=== PATIENT | male | born 1975 | race African-American/Black ===

== ENCOUNTER 2019-08-09 20:42 | Emergency (ER) | payer OTHER ==
[~2019-08-09] VITALS: Ht 175.3 cm; Wt 83.9 kg
[2019-08-09 21:10] VITALS: BP 123/93
== END 2019-08-10 00:41 | disposition home or self-care (01) ==
LOC: ER 20:47
DX: S16.1XXA Strain of muscle, fascia and tendon at neck level, initial encounter (principal); M62.838 Other muscle spasm; X58.XXXA Exposure to other specified factors, initial encounter; Y93.89 Activity, other specified; Y92.89 Other specified places as the place of occurrence of the external cause; Y99.8 Other external cause status

== ENCOUNTER 2019-08-10 17:56 | Inpatient (IN) | payer OTHER ==
[~2019-08-10] VITALS: Ht 177.8 cm; Wt 86.6 kg
[2019-08-10 20:14] LABS: Basophils # (auto) 0 uL; Basophils % (auto) 0.1 % (0.0-2.0); Eosinophils # (auto) 0 uL; Hematocrit 41.3 % (41.0-53.0); Hemoglobin 13.7 g/dL (13.5-17.5); Lymphocytes # (auto) 0.7 uL; Mean Corpuscular Hemoglobin 33.4 pg (28.0-32.0); Mean Corpuscular Hgb Conc. 33.3 g/dL (32.0-36.0); Mean Corpuscular Volume 100.4 fL (80.0-100.0); Monocytes # (auto) 0.2 uL; Monocytes % (auto) 2.2 % (0.0-12.0); Neutrophils # (auto) 10.3 uL; Neutrophils % (auto) 91.7 % (37.0-80.0); Nucleated Red Blood Cells % 0.1 %; Platelet Count (auto) 233 10^3/uL (140-450); Red Blood Cells 4.11 10^6/uL (4.5-5.90); Red Cell Distribution Width 12.8 % (11.8-14.3); White Blood Cell 11.2 10^3/uL (4.4-10.8)
[2019-08-10 20:44] LABS: Albumin 4.2 g/dL (3.4-5.0); BUN/Creatinine Ratio 9.4; Calcium 9.6 mg/dL (8.5-10.1); Potassium 4.3 mmol/L (3.5-5.1)
[2019-08-10 20:47] LABS: Bilirubin, Total 0.5 mg/dL (0.2-1.0); Total Protein 8.6 g/dL (6.4-8.2)
[2019-08-10] MEDS ORDERED: SODIUM CHLORIDE 0.9% 2,500 ML IV ONE (22:30)
[2019-08-10] MEDS ORDERED: ONDANSETRON HCL 4 MG/2 ML VIAL IV ONE (23:30)
[2019-08-10] MEDS ORDERED: MORPHINE SULFATE 4 MG/ML SYR/VIAL IV ONE (23:30)
[2019-08-10] MEDS: PIPERACILLIN-TAZOB 3.375GM 100 ML IV SCH (23:58)
[2019-08-11 00:13] LABS: INR 0.94 (0.9-1.15); Partial Thromboplastin Time 29.9 sec (23.64-32.05)
[2019-08-11 00:17] LABS: Urine Bacteria NONE SEEN /hpf (None Seen); Urine Blood Negative /uL (Negative); Urine Specific Gravity 1.004 (1.001-1.035); Urine WBC 3 /hpf (0 - 3)
[2019-08-11] MEDS: PIPERACILLIN-TAZOB 3.375GM 100 ML IV SCH ×3 (07:46→17:39)
[2019-08-11] MEDS ORDERED: ACETAMINOPHEN 500 MG TAB PO PRN (09:45)
[2019-08-11] MEDS ORDERED: ONDANSETRON HCL 4 MG/2 ML VIAL IV PRN (09:45)
[2019-08-11] MEDS: FAMOTIDINE 20 MG TAB PO SCH (10:14)
[2019-08-11] MEDS: SODIUM CHLORIDE 0.9% 1,000 ML IV SCH ×2 (10:15→19:45)
--- NOTE | 2019-08-11 11:50 | NUR ---
Telemetry admit from [facility] admitted to [facility]/Telemetry unit after SBAR received. Patient oriented to Alicja Akers, travis RN, unit, room, bed, and unit policies regarding patient care and visiting hours. Patient encouraged to call if they need something. All questions and concerns addressed, patient verbalized understanding. Addendum: 08/11/19 at 1908 by Alicja Akers RN * [facility] patient
[2019-08-11 13:00] VITALS: BP 138/84
[2019-08-11] MEDS: MORPHINE SULF INJ 2 MG/ML SYRINGE 1ML IV PRN (16:38)
--- NOTE | 2019-08-11 16:46 | NUR ---
Paatient c/o shooting pain that starts in the back of the neck and radiates to head. pain 10/. Will medicate as prescribed by .
[2019-08-11 16:56] VITALS: BP 144/86
--- NOTE | 2019-08-11 19:45 | NUR ---
OPENING SHIFT NOTE RECEIVED REPORT FROM DAYSHIFT RN. PATIENT LYING IN BED WATCHING TELEVISION. NO S/S OF DISTRESS OR SOB. PATIENT REPORTS SEVERE "NERVE PAIN IN THE BACK OF MY NECK. THE MORPHINE DOES NOT HELP BECAUSE ITS NERVE PAIN. I NEED GABAPENTIN." WILL PAGE HOSPITALIST FOR ORDER. PATIENT A/O X4, AMBULATORY. UPDATED PATIENT ON POC, VERBALIZED UNDERSTANDING. BED LOCKED IN LOW POSITION, CALL LIGHT WITHIN REACH. WILL CONTINUE TO MONITOR PATIENT Q1HR AND PRN.
[2019-08-11] MEDS: HYDROcodone-ACET 5/325MG TAB PO PRN (20:39)
[2019-08-11] MEDS: GABAPENTIN 100 MG CAP PO SCH (21:55)
[2019-08-11 22:36] VITALS: BP 134/97
--- NOTE | 2019-08-12 00:30 | NUR ---
Assumed Care of Patient for Mariaelena RN: Assumed care of patient, awake and alert. No S/S of distress/SOB or pain. Instructed on POC and to call for assist PRN, will continue to monitor for changes Q1hr and PRN.
[2019-08-12] MEDS: MORPHINE SULF INJ 2 MG/ML SYRINGE 1ML IV PRN ×2 (00:32→07:57)
[2019-08-12] MEDS: HYDROcodone-ACET 5/325MG TAB PO PRN ×2 (03:40→09:49)
[2019-08-12 05:14] VITALS: BP 120/79
[2019-08-12 05:19] LABS: Albumin 3.2 g/dL (3.4-5.0); Calcium 8.7 mg/dL (8.5-10.1); Potassium 3.4 mmol/L (3.5-5.1)
[2019-08-12 05:23] LABS: Bilirubin, Total 0.4 mg/dL (0.2-1.0); Total Protein 6.8 g/dL (6.4-8.2)
[2019-08-12] MEDS: SODIUM CHLORIDE 0.9% 1,000 ML IV SCH (05:34)
--- NOTE | 2019-08-12 07:30 | NUR ---
Opening Shift Note Assuming care of patient at this time. Patient is awake and alert. Patient is complaining of pain 10/10 to the head and neck. Patient shows no signs or symptoms of distress or shortness of breath. Bed is locked and lowered with side rails up x2. Instructed patient on the plan of care for today and to call for assistance as needed. Call light within reach. Will continue to round hourly and as needed.
[2019-08-12 09:00] VITALS: BP 123/86
[2019-08-12] MEDS ORDERED: cefTRIAXone 1GM/50ML D5W 50 ML IV SCH (09:00)
[2019-08-12] MEDS: FAMOTIDINE 20 MG TAB PO SCH (09:49)
[2019-08-12] MEDS: GABAPENTIN 100 MG CAP PO SCH (09:49)
[2019-08-12 12:29] VITALS: BP 137/96
[2019-08-12 13:42] VITALS: BP 137/96
--- NOTE | 2019-08-12 14:17 | NUR ---
Discharge Discharge instructions given as ordered. Encourage to follow up with PMD as instructed. No appointment was made as insurance is out of the area. Gave patient information on urgent care. All questions and concerns addressed. Patient verbalized understanding. IV removed with catheter intact, pressure dressing applied. [facility], patient to stop by and greens picker. Patient aware. Patient ambulated to pharmacy with all personal belongings, accompanied by family member. Both patient and family aware to greens picker medications from [facility]. No distress noted at time of departure.
== END 2019-08-12 14:15 | disposition home or self-care (01) | DRG 720 ==
LOC: ER 18:13 → OVERFLOW 18:14 → CENTRAL 08-11 12:05
PROVIDERS: ADMIT Nurse Practitioner Acute Care; ATTEND Internal Medicine Nephrology
DX: A41.9 Sepsis, unspecified organism (principal); M50.01 Cervical disc disorder with myelopathy, high cervical region; D49.6 Neoplasm of unspecified behavior of brain; K04.7 Periapical abscess without sinus; M19.90 Unspecified osteoarthritis, unspecified site; F12.90 Cannabis use, unspecified, uncomplicated; K21.9 Gastro-esophageal reflux disease without esophagitis; M46.92 Unspecified inflammatory spondylopathy, cervical region; Z79.899 Other long term (current) drug therapy
CPT/HCPCS: 36415; 36600; 70450; 70490; 71045; 80053; 81001; 82550; 82805; 83605; 84484; 85025; 85379; 85384; 85610; 85730; 87040; 87086; 96361; 96365; 96375; G0378; J0696; J2405; J2543

== ENCOUNTER 2020-01-25 18:05 | Emergency (ER) | payer OTHER ==
[~2020-01-25] VITALS: Ht 177.8 cm; Wt 77.1 kg
[2020-01-25 18:57] VITALS: BP 136/82
== END 2020-01-25 20:20 | disposition home or self-care (01) ==
LOC: ER 18:05
DX: J06.9 Acute upper respiratory infection, unspecified (principal)
CPT/HCPCS: 71046